=== PATIENT | male | born 1940 | race Caucasian/White ===

== ENCOUNTER 2018-09-21 16:22 | Inpatient (IN) | payer OTHER ==
[~2018-09-21] VITALS: Ht 162.6 cm; Wt 76.5 kg
--- NOTE | 2018-09-21 16:55 | ERD ---
ER Documentation Chief Complaint Chief Complaint SENT PER PMD FOR EVAL OF LOW HEART BEAT, STATES PINCHING FEELING ON CHEST HPI 78-year-old man with a history of coronary artery disease referred to the ER by PMD for bradycardic atrial flutter. Patient has no history of atrial flutter or fibrillation and states for the last few days he has had elevated blood pressure and headaches despite using his medications. Patient does use metoprolol daily. Patient denies fevers or chills, no chest pain or shortness of breath, no headache or blurry vision. ROS All systems reviewed and are negative except as per history of present illness. Medications Home Meds Reported Medications Omeprazole* (Omeprazole*) 20 Mg Capsule.dr, 20 MG PO DAILY, #30 CAP 09/21/18 Levothyroxine Sodium* (Levothyroxine Sodium*) 50 Mcg Tablet, 50 MCG PO BEFORE BREAKFAST, #30 TAB 09/21/18 Amlodipine Besylate* (Amlodipine Besylate*) 10 Mg Tablet, 10 MG PO DAILY, #30 TAB 09/21/18 Benazepril Hcl* (Benazepril Hcl*) 20 Mg Tablet, 20 MG PO DAILY, #30 TAB 09/21/18 Furosemide* (Furosemide*) 40 Mg Tablet, 40 MG PO DAILY, TAB 09/21/18 Dutasteride* (Avodart*) 0.5 Mg Capsule, 0.5 MG PO DAILY, CAP 09/21/18 Metoprolol Succinate* (Toprol XL*) 25 Mg Tab.sr.24h, 25 MG PO DAILY, #30 TAB 09/21/18 Tamsulosin Hcl* (Tamsulosin Hcl*) 0.4 Mg Cap.er.24h, 0.4 MG PO HS, CAP 09/21/18 Glimepiride* (Glimepiride*) 2 Mg Tablet, 2 MG PO WITH BREAKFAST DINNE, TAB 09/21/18 Metformin Hcl* (Metformin Hcl*) 1,000 Mg Tablet, 1000 MG PO WITH BREAKFAST DINNE, #60 TAB 09/21/18 Isosorbide Mononitrate* (Isosorbide Mononitrate*) 30 Mg Tab.er.24h, 30 MG PO DAILY, TAB 09/21/18 Fenofibrate, Micronized (Fenofibrate) 54 Mg Tablet, 54 MG PO DAILY, TAB 09/21/18 Allergies Allergies: Coded Allergies: No Known Allergies (Verified Allergy, Unknown, 09/21/18) PMhx/Soc coronary artery disease status post CABG x3, hypertension, CHF, GERD, diabetes mellitus, hypothyroidism, BPH FmHx Family History: No diabetes Physical Exam Vitals Vital Signs Date Temp Pulse Resp B/P (MAP) Pulse Ox O2 O2 Flow FiO2 Time Delivery Rate 09/21/18 98.3 56 16 127/45 99 Room Air 17:11 (72) 09/21/18 98.3 70 16 138/63 99 16:27 (88) Physical Exam GENERAL: Well-developed, well-nourished, well-hydrated, in no apparent distress, looks nontoxic in appearance HEENT: Moist mucous membranes, pink conjunctiva, no cervical spine tenderness or step-off deformities, no goiter, no jaundice or icterus, extraocular movements intact without pain. No submandibular induration, and no pharyngeal erythema NEURO: Alert and oriented 3, cranial nerves II through XII intact bilaterally, pupils equal round reactive to light, no focal deficits or facial asymmetry, sensation intact distally Strength 5/5 in upper and lower extremities bilaterally CARDIAC: Regular rate and rhythm, no murmurs rubs or gallops LUNGS: Clear bilaterally no wheezing crackles or stridor ABDOMEN: Soft nontender, no guarding, no rigidity, no rebound, no psoas sign no obturator sign. Normoactive bowel sounds SKIN: Warm and dry to touch, no abrasions, contusions, or hematomas, no lacerations, no ecchymosis, no target lesions, and without ulcers EXTREMITIES: No clubbing cyanosis or edema, calves are bilaterally symmetrical, no Homans sign, no popliteal cord sign. Distal pulses equal and bilateral PSYCH: Normal affect without agitation or irritability Result Diagram: 09/21/18172909/21/181729 Results 24 hrs Laboratory Tests Test 09/21/18 17:30 White Blood Count 8.2 10^3/ul Red Blood Count 3.99 10^6/ul Hemoglobin 11.9 g/dl Hematocrit 36.4 % Mean Corpuscular Volume 91.2 fl Mean Corpuscular Hemoglobin 29.8 pg Mean Corpuscular Hemoglobin Concent 32.7 g/dl Red Cell Distribution Width 13.0 % Platelet Count 234 10^3/UL Mean Platelet Volume 11.6 fl Immature Granulocytes % 0.400 % Neutrophils % 49.2 % Lymphocytes % 37.6 % Monocytes % 8.1 % Eosinophils % 4.0 % Basophils % 0.7 % Nucleated Red Blood Cells % 0.0 /100WBC Immature Granulocytes # 0.030 10^3/ul Neutrophils # 4.0 10^3/ul Lymphocytes # 3.1 10^3/ul Monocytes # 0.7 10^3/ul Eosinophils # 0.3 10^3/ul Basophils # 0.1 10^3/ul Nucleated Red Blood Cells # 0.0 10^3/ul Sodium Level 142 mmol/L Potassium Level 4.0 mmol/L Chloride Level 104 mmol/L Carbon Dioxide Level 24 mmol/L Anion Gap 14 Blood Urea Nitrogen 18 mg/dl Creatinine 1.07 mg/dl Est Glomerular Filtrat Rate mL/min mL/min Glucose Level 202 mg/dl Calcium Level 10.0 mg/dl Total Bilirubin 0.3 mg/dl Direct Bilirubin 0.00 mg/dl Indirect Bilirubin 0.3 mg/dl Aspartate Amino Transf (AST/SGOT) 32 IU/L Alanine Aminotransferase (ALT/SGPT) 39 IU/L Alkaline Phosphatase 86 IU/L Troponin I < 0.012 ng/ml Total Protein 7.4 g/dl Albumin 4.4 g/dl Globulin 3.00 g/dl Albumin/Globulin Ratio 1.46 Lipase 140 U/L Current Medications Medications Dose Sig/Luz Start Time Status Last (Trade) Ordered Route PRN Stop Time Admin Dose Reason Admin Aspirin 162 mg ONCE ONCE 09/21/18 DC 09/21/18 (Aspirin) PO 17:00 17:30 09/21/18 17:25 Sodium 500 ml @ Q1H STAT 09/21/18 DC 09/21/18 Chloride 500 mls/hr IV 17:21 17:31 09/21/18 18:20 Aspirin 162 mg ONCE ONCE 09/21/18 DC (Aspirin) PO 17:30 09/21/18 17:31 Procedures/MDM IV line was established 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 Patient was afebrile EKG performed, read by me revealed a sinus bradycardia 60 bpm, normal axis, narrow QRS complex, right ventricular conduction delay QRS duration 102 ms, no concerning ST elevations or depressions noted Chest X-ray 1V Interpreted by me: Soft Tissue: No acute abnormalities Bones: No acute abnormalities Mediastinum/Cardiac Silhouette/Lungs: No acute abnormalities I reviewed office EKG performed prior to arrival and it appears he has atrial flutter 2-1 block at about 46 bpm, normal axis, narrow QRS complex, no concerning ST elevations or depressions I administered aspirin 162 mg p.o. for cardioprotective measures. CBC and electrolytes are normal, liver function tests were normal, troponin was negative Patient will be admitted to telemetry setting for continued medical management and cardiology consultation. Departure Diagnosis: Primary Impression: Atrial flutter Atrial flutter type: unspecified Qualified Codes: I48.92 - Unspecified atrial flutter Additional Impressions: Symptomatic bradycardia Hypertension Hypertension type: essential hypertension Qualified Codes: I10 - Essential (primary) hypertension Condition: HARMONY Finley MD Sep 21, 2018 16:55
[2018-09-21] MEDS ORDERED: ASPIRIN 81 MG TAB PO ONE ×2 (17:00→17:30)
[2018-09-21] MEDS ORDERED: SOD CHLORIDE 0.9% 500 ML IV STA (17:21)
[2018-09-21] MEDS ORDERED: FENO54TA7 PO (17:32)
[2018-09-21] MEDS ORDERED: ISOS30TA67 PO (17:32)
[2018-09-21] MEDS ORDERED: METF100010 PO (17:33)
[2018-09-21] MEDS ORDERED: GLIM2TAB PO (17:33)
[2018-09-21] MEDS ORDERED: TAMS0.4C2 PO (17:33)
[2018-09-21] MEDS ORDERED: FURO40TA4 PO (17:34)
[2018-09-21] MEDS ORDERED: METO-335 PO (17:34)
[2018-09-21] MEDS ORDERED: DUTA0.5C PO (17:34)
[2018-09-21] MEDS ORDERED: BENA20TA4 PO (17:35)
[2018-09-21] MEDS ORDERED: LEVO50TA7 PO (17:35)
[2018-09-21] MEDS ORDERED: AMLO-147 PO (17:35)
[2018-09-21] MEDS ORDERED: OMEP20CA16 PO (17:36)
[2018-09-21] MEDS ORDERED: HYDROCODONE/APAP (5/325) TAB PO PRN (19:00)
[2018-09-21] MEDS ORDERED: ONDANSETRON 4 MG INJ IV PRN (19:00)
[2018-09-21] MEDS ORDERED: NITROGLYCERIN (SL) 0.4 MG TAB SL PRN (19:00)
[2018-09-21] MEDS ORDERED: NACL 0.9% 3 ML SYG IV SCH (19:00)
[2018-09-21] MEDS ORDERED: ACETAMINOPHEN 325 MG TAB PO PRN (19:00)
--- NOTE | 2018-09-21 19:19 | HP ---
Date/Time of Note Date/Time of Note DATE: 09/21/18 TIME: 19:19 Assessment/Plan VTE Prophylaxis Pharmacological prophylaxis: other Lines/Catheters IV Catheter Type (from Nrs): Saline Lock Assessment/Plan Hospital Course Patient is a male with a past medical history significant for coronary artery disease status post CABG x3, hypertension, likely CHF, GERD, diabetes mellitus, hypothyroidism, BPH who presents to [facility] after being sent by his PCP for bradycardia. Patient currently feels well with no acute complaints however the reason he went to his PCP today was because of headache and elevated blood pressure at home. Currently patient's blood pressure is within normal limits and he has absolutely no complaints with no headache. Patient denies chest pain, shortness of breath, headache, abdominal pain, leg pain. Objective Physical exam General: Patient is laying in bed and answers questions appropriately Mentation: Patient is alert and oriented 4, Head: Normocephalic atraumatic Eyes: EOMI, pupils reactive to light Neck: Supple, nontender, midline Respiratory: Clear to auscultation bilaterally Cardiovascular: regular rate, no obvious murmurs Gastrointestinal: non-tender to palpation, bowel sounds heard. Neurological: Moves all extremities spontaneously Skin: No new skin lesions Assessment and plan Bradycardia -Likely iatrogenic as patient is on metoprolol XL, will hold off on metoprolol for now, cardiology has been consulted and echocardiogram ordered -Monitor, astigmatic at this time, however there has been questionable pinched feeling in his chest per ED physician so will trend troponins although patient has no shortness of breath or chest pain at time of this evaluation Questionable a flutter -Per ED may have seen a flutter on monitor, patient is sinus at this time with no history of atrial fibrillation or atrial flutter, echocardiogram pending, cardiology evaluation pending Hypertension -Continue home meds Coronary artery disease status post CABG x3 -Continue home meds Hypothyroidism -Continue home meds BPH -Continue home meds GERD -Continue home meds Diabetes mellitus -Insulin while in house Disposition -Patient feels well, trend troponins, obtain echocardiogram, await cardiology evaluation for bradycardia Result Diagram: 09/21/18 1730 09/21/18 1730 Results 24hrs Laboratory Tests Test 09/21/18 17:30 White Blood Count 8.2 Red Blood Count 3.99 L Hemoglobin 11.9 L Hematocrit 36.4 L Mean Corpuscular Volume 91.2 Mean Corpuscular Hemoglobin 29.8 Mean Corpuscular Hemoglobin Concent 32.7 Red Cell Distribution Width 13.0 Platelet Count 234 Mean Platelet Volume 11.6 H Immature Granulocytes % 0.400 Neutrophils % 49.2 Lymphocytes % 37.6 Monocytes % 8.1 Eosinophils % 4.0 Basophils % 0.7 Nucleated Red Blood Cells % 0.0 Immature Granulocytes # 0.030 Neutrophils # 4.0 Lymphocytes # 3.1 H Monocytes # 0.7 Eosinophils # 0.3 Basophils # 0.1 Nucleated Red Blood Cells # 0.0 Sodium Level 142 Potassium Level 4.0 Chloride Level 104 Carbon Dioxide Level 24 Anion Gap 14 H Blood Urea Nitrogen 18 Creatinine 1.07 Est Glomerular Filtrat Rate mL/min Glucose Level 202 Calcium Level 10.0 Total Bilirubin 0.3 Direct Bilirubin 0.00 Indirect Bilirubin 0.3 Aspartate Amino Transf (AST/SGOT) 32 Alanine Aminotransferase (ALT/SGPT) 39 Alkaline Phosphatase 86 Troponin I < 0.012 Total Protein 7.4 Albumin 4.4 Globulin 3.00 Albumin/Globulin Ratio 1.46 Lipase 140 HPI/ROS Admit Date/Time Admit Date/Time PMH/Family/Social Past Medical History Medications Current Medications Amlodipine Besylate (Norvasc) 10 mg DAILY PO ; Start 09/22/18 at 09:00; Status UNV Benazepril HCl (Lotensin) 20 mg DAILY PO ; Start 09/22/18 at 09:00; Status UNV Dutasteride (Avodart) 0.5 mg DAILY PO ; Start 09/22/18 at 09:00; Status UNV Furosemide (Lasix) 40 mg DAILY PO ; Start 09/22/18 at 09:00; Status UNV Isosorbide Mononitrate (Imdur) 30 mg DAILY PO ; Start 09/22/18 at 09:00; Status UNV Levothyroxine Sodium (Synthroid) 50 mcg BEFORE BREAKFAST PO ; Start 09/22/18 at 07:00; Status UNV Tamsulosin HCl (Flomax) 0.4 mg HS PO ; Start 09/21/18 at 21:00; Status UNV Pantoprazole (Protonix Tab) 40 mg DAILY@06 PO ; Start 09/22/18 at 06:00; Status UNV IV Flush (NS 3 ml) 3 ml PER PROTOCOL IV ; Start 09/21/18 at 19:00; Status UNV Ondansetron HCl (Zofran Inj) 4 mg Q6H PRN IV NAUSEA/VOMITING; Start 09/21/18 at 19:00; Status UNV Nitroglycerin (Nitroglycerin (Sl Tab) 0.4 Mg) 1 tab Q5M PRN SL .CHEST PAIN; Start 09/21/18 at 19:00; Status UNV Acetaminophen (Tylenol Tab) 650 mg Q6H PRN PO .PAIN 1-3 OR TEMP; Start 09/21/18 at 19:00; Status UNV Acetaminophen/ Hydrocodone Bitart ([place] (5/325)) 1 tab Q6H PRN PO .PAIN 4-6; Start 09/21/18 at 19:00; Status UNV Miscellaneous Information (* Miscellaneous Pharmacy Order) Discontinue current oral sulfonylur... ONCE ONCE XX ; Start 09/21/18 at 19:00; Stop 09/21/18 at 19:01; Status UNV Diagnostic Test (Pha) (Accu-Chek) 1 ea XX ; Start 09/22/18 at 02:00; Status UNV Insulin Glargine (Lantus) 11 units DAILY@2000 SC ; Start 09/21/18 at 20:00; Status UNV Insulin Aspart (Novolog Insulin Pen) 4 unit WITH MEALS SC ; Start 09/22/18 at 08:00; Status UNV Miscellaneous Information (* Miscellaneous Pharmacy Order) HYPOGLYCEMIA PROTOCOL w... ONCE ONCE XX ; Start 09/21/18 at 19:00; Stop 09/21/18 at 19:01; Status UNV Insulin Aspart (Novolog Insulin Pen) NOVOLOG *MILD* ALGORITHM WITH MEALS BEDTIME SC ; Start 09/21/18 at 21:00; Status UNV Miscellaneous Information (* Miscellaneous Pharmacy Order) Discontinue all previ... ONCE ONCE XX ; Start 09/21/18 at 19:00; Stop 09/21/18 at 19:01; Status UNV Coded Allergies: No Known Allergies (Verified Allergy, Unknown, 09/21/18) Social History Smoking Status: Never smoker Exam/Review of Systems Vital Signs Vitals Vital Signs Date Temp Pulse Resp B/P (MAP) Pulse Ox O2 O2 Flow FiO2 Time Delivery Rate 09/21/18 51 14 119/46 100 Room Air 19:06 (70) 09/21/18 98.3 17:11 HARMONY KWONG Sep 21, 2018 19:19
[2018-09-21] MEDS ORDERED: GLUCAGON 1 MG INJ IM PRN (20:00)
[2018-09-21] MEDS ORDERED: GLUCOSE GEL 15 GRAM TUBE BUCCAL PRN (20:00)
[2018-09-21] MEDS ORDERED: GLUCOSE GEL 15 GRAM TUBE PO PRN ×2 (20:00)
[2018-09-21] MEDS ORDERED: DEXTROSE 50% 50 ML SYRINGE IV PRN ×2 (20:00)
[2018-09-21 20:09] VITALS: PULSE 48
[2018-09-21 20:24] VITALS: Ht 162.6 cm; Wt 76.5 kg
[2018-09-21] MEDS: TAMSULOSIN (SR) 0.4 MG CAP PO SCH (20:58)
[2018-09-21] MEDS: INSULIN ASPART [NOVOLOG] 3 ML PEN SC SCH (20:59)
[2018-09-21 21:18] VITALS: BP 133/65; PULSE 46; RESP 19
[2018-09-21] MEDS: INSULIN GLARGINE [LANTus] (100 UNITS/ML) SYG SC SCH (22:20)
[2018-09-21 23:32] VITALS: BP 133/60; PULSE 48; RESP 18
[2018-09-22] VITALS (12 sets, daily range): BP systolic 140–153; BP diastolic 63–68; PULSE 39–60; RESP 18–22
[2018-09-22] MEDS: ACCU-CHEK XX SCH (02:00)
[2018-09-22] MEDS: LEVOTHYROXINE 50 MCG TAB PO SCH (06:43)
[2018-09-22] MEDS: PANTOPRAZOLE (EC) 40 MG TAB PO SCH (06:43)
[2018-09-22] MEDS: INSULIN ASPART [NOVOLOG] 3 ML PEN SC SCH ×6 (07:47→20:41)
[2018-09-22] MEDS: AMLODIPINE 10 MG TAB PO SCH (08:39)
[2018-09-22] MEDS: ISOSORBIDE MONONITRATE(SR)30 MG TAB PO SCH (08:39)
[2018-09-22] MEDS: FUROSEMIDE 40 MG TAB PO SCH (08:41)
[2018-09-22] MEDS: ASPIRIN 81 MG TAB PO SCH (08:41)
[2018-09-22] MEDS: DUTASTERIDE 0.5 MG CAP PO SCH (08:42)
[2018-09-22] MEDS ORDERED: BENAZEPRIL 20 MG TAB PO SCH (09:00)
--- NOTE | 2018-09-22 13:25 | CONS ---
Assessment/Plan Assessment/Plan Hospital Course (Demo Recall) Assessment: Sinus bradycardia - possible mild sinus node dysfunction exacerbated by metoprolol, asymptomatic and no clear indication for permanent pacemaker Coronary artery disease, status post CABG (~30 years ago) and PCI (most recently ~3 years ago) - clinically stable Hypertension - reasonable control since hospital admission Dyslipidemia Diabetes mellitus Hypothyroidism - on replacement, normal TSH Benign prostate hyperplasia Recommendations: -metoprolol has been discontinued -increase benazepril to 20mg BID -continue amlodipine 10mg daily -continue Imdur 30mg daily -continue aspirin 81mg daily Stable for discharge from cardiac standpoint, with 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 Consultation Date/Type/Reason Admit Date/Time Type of Consult Cardiology Reason for Consultation bradycardia Date/Time of Note DATE: 09/22/18 TIME: 13:17 Hx of Present Illness The patient is an 78 year-old male who was referred from an urgent care due to bradycardia. He presented to the urgent care for evaluation of headache and high blood pressure for several days. Upon evaluation there, he was noted to have bradycardia. The patient denies any lightheadedness or syncope, He denies any chest pain or shortness of breath. There was a question of atrial flutter, though review of available EKGs and telemetry monitoring do not show any evidence of atrial flutter or atrial fibrillation. He has been in sinus rhythm since hospital admission, with heart rates down to the 40s and occasional blocked premature atrial contractions. 14 point review of systems negative other than per HPI. Past Medical History Coronary artery disease, status post CABG (~30 years ago) and PCI (most recently ~3 years ago) Hypertension Dyslipidemia Diabetes mellitus Hypothyroidism Benign prostate hyperplasia Home Meds Reported Medications Omeprazole* (Omeprazole*) 20 Mg Capsule.dr, 20 MG PO DAILY, #30 CAP 09/21/18 Levothyroxine Sodium* (Levothyroxine Sodium*) 50 Mcg Tablet, 50 MCG PO BEFORE BREAKFAST, #30 TAB 09/21/18 Amlodipine Besylate* (Amlodipine Besylate*) 10 Mg Tablet, 10 MG PO DAILY, #30 TAB 09/21/18 Benazepril Hcl* (Benazepril Hcl*) 20 Mg Tablet, 20 MG PO DAILY, #30 TAB 09/21/18 Furosemide* (Furosemide*) 40 Mg Tablet, 40 MG PO DAILY, TAB 09/21/18 Dutasteride* (Avodart*) 0.5 Mg Capsule, 0.5 MG PO DAILY, CAP 09/21/18 Metoprolol Succinate* (Toprol XL*) 25 Mg Tab.sr.24h, 25 MG PO DAILY, #30 TAB 09/21/18 Tamsulosin Hcl* (Tamsulosin Hcl*) 0.4 Mg Cap.er.24h, 0.4 MG PO HS, CAP 09/21/18 Glimepiride* (Glimepiride*) 2 Mg Tablet, 2 MG PO WITH BREAKFAST DINNE, TAB 09/21/18 Metformin Hcl* (Metformin Hcl*) 1,000 Mg Tablet, 1000 MG PO WITH BREAKFAST DINNE, #60 TAB 09/21/18 Isosorbide Mononitrate* (Isosorbide Mononitrate*) 30 Mg Tab.er.24h, 30 MG PO DAILY, TAB 09/21/18 Fenofibrate, Micronized (Fenofibrate) 54 Mg Tablet, 54 MG PO DAILY, TAB 09/21/18 Medications Current Medications Amlodipine Besylate (Norvasc) 10 mg DAILY PO Last administered on 09/22/18at 08:39; Admin Dose 10 MG; Start 09/22/18 at 09:00 Benazepril HCl (Lotensin) 20 mg DAILY PO Last administered on 09/22/18at 08:41; Admin Dose 20 MG; Start 09/22/18 at 09:00 Dutasteride (Avodart) 0.5 mg DAILY PO Last administered on 09/22/18at 08:42; Admin Dose 0.5 MG; Start 09/22/18 at 09:00 Furosemide (Lasix) 40 mg DAILY PO Last administered on 09/22/18at 08:41; Admin Dose 40 MG; Start 09/22/18 at 09:00 Isosorbide Mononitrate (Imdur) 30 mg DAILY PO Last administered on 09/22/18at 08:39; Admin Dose 30 MG; Start 09/22/18 at 09:00 Levothyroxine Sodium (Synthroid) 50 mcg BEFORE BREAKFAST PO Last administered on 09/22/18at 06:43; Admin Dose 50 MCG; Start 09/22/18 at 07:00 Tamsulosin HCl (Flomax) 0.4 mg HS PO Last administered on 09/21/18at 20:58; Admin Dose 0.4 MG; Start 09/21/18 at 21:00 Pantoprazole (Protonix Tab) 40 mg DAILY@06 PO Last administered on 09/22/18at 06:43; Admin Dose 40 MG; Start 09/22/18 at 06:00 IV Flush (NS 3 ml) 3 ml PER PROTOCOL IV ; Start 09/21/18 at 19:00 Ondansetron HCl (Zofran Inj) 4 mg Q6H PRN IV NAUSEA/VOMITING; Start 09/21/18 at 19:00 Nitroglycerin (Nitroglycerin (Sl Tab) 0.4 Mg) 1 tab Q5M PRN SL .CHEST PAIN; Start 09/21/18 at 19:00 Acetaminophen (Tylenol Tab) 650 mg Q6H PRN PO .PAIN 1-3 OR TEMP; Start 09/21/18 at 19:00 Acetaminophen/ Hydrocodone Bitart ([place] (5/325)) 1 tab Q6H PRN PO .PAIN 4-6; Start 09/21/18 at 19:00 Diagnostic Test (Pha) (Accu-Chek) 1 ea 02 XX ; Start 09/22/18 at 02:00 Insulin Glargine (Lantus) 11 units DAILY@2000 SC Last administered on 09/21/18at 22:20; Admin Dose 11 UNITS; Start 09/21/18 at 20:00 Insulin Aspart (Novolog Insulin Pen) 4 unit WITH MEALS SC Last administered on 09/22/18at 09:19; Admin Dose 4 UNIT; Start 09/22/18 at 08:00 Insulin Aspart (Novolog Insulin Pen) NOVOLOG *MILD* ALGORITHM WITH MEALS BEDTIME SC ; Start 09/21/18 at 21:00 Aspirin (Aspirin) 81 mg DAILY PO Last administered on 09/22/18at 08:41; Admin Dose 81 MG; Start 09/22/18 at 09:00 Miscellaneous Information 1 ea NOTE XX ; Start 09/21/18 at 20:00 Glucose (Glutose) 15 gm Q15M PRN PO DECREASED GLUCOSE; Start 09/21/18 at 20:00 Glucose (Glutose) 22.5 gm Q15M PRN PO DECREASED GLUCOSE; Start 09/21/18 at 20:00 Dextrose (D50w Syringe) 25 ml Q15M PRN IV DECREASED GLUCOSE; Start 09/21/18 at 20:00 Dextrose (D50w Syringe) 50 ml Q15M PRN IV DECREASED GLUCOSE; Start 09/21/18 at 20:00 Glucagon (Glucagen) 1 mg Q15M PRN IM DECREASED GLUCOSE; Start 09/21/18 at 20:00 Glucose (Glutose) 15 gm Q15M PRN BUCCAL DECREASED GLUCOSE; Start 09/21/18 at 20:00 Allergies: Coded Allergies: No Known Allergies (Verified Allergy, Unknown, 09/21/18) Past Surgical History Past Surgical Hx: coronary bypass surgery Family History Significant Family History: no pertinent family hx Social History Smoking Status: Never smoker Exam/Review of Systems Vital Signs Vitals Vital Signs Date Temp Pulse Resp B/P (MAP) Pulse Ox O2 O2 Flow FiO2 Time Delivery Rate 09/22/18 98.0 55 22 148/65 96 Room Air 12:19 (92) Exam Constitutional: alert, well developed Psych: no complaints, nl mood/affect Head: normocephalic, atraumatic Eyes: nl conjunctiva, nl lids ENMT: nl external ears & nose, nl nasal mucosa & septum Neck: supple, non-tender; No jvd Respiratory: clear to auscultation Cardiovascular: regular rate and rhythm Gastrointestinal: soft, non-tender Musculoskeletal: nl extremities to inspection Extremities: No cyanosis, No clubbing, No edema Neurological: nl mental status, nl speech Skin: nl turgor Labs Result Diagram: 09/22/1817 09/22/18 0517 Results 24hrs Laboratory Tests Test 09/21/18 17:30 09/21/18 20:57 09/22/18 00:24 09/22/18 05:17 White Blood Count 8.2 7.6 Red Blood Count 3.99 L 3.76 L Hemoglobin 11.9 L 11.1 L Hematocrit 36.4 L 34.2 L Mean Corpuscular 91.2 91.0 Volume Mean Corpuscular 29.8 29.5 Hemoglobin Mean Corpuscular 32.7 32.5 Hemoglobin Concent Red Cell 13.0 13.4 Distribution Width Platelet Count 234 225 Mean Platelet Volume 11.6 H 11.8 H Immature 0.400 0.400 Granulocytes % Neutrophils % 49.2 41.4 Lymphocytes % 37.6 41.9 Monocytes % 8.1 9.7 Eosinophils % 4.0 5.8 Basophils % 0.7 0.8 Nucleated Red Blood 0.0 0.0 Cells % Immature 0.030 0.030 Granulocytes # Neutrophils # 4.0 3.2 Lymphocytes # 3.1 H 3.2 H Monocytes # 0.7 0.7 Eosinophils # 0.3 0.4 Basophils # 0.1 0.1 Nucleated Red Blood 0.0 0.0 Cells # Sodium Level 142 139 Potassium Level 4.0 3.7 Chloride Level 104 105 Carbon Dioxide Level 24 25 Anion Gap 14 H 9 # Blood Urea Nitrogen 18 18 Creatinine 1.07 0.95 Est Glomerular Filtrat Rate mL/min Glucose Level 202 120 # Calcium Level 10.0 9.2 Total Bilirubin 0.3 0.3 Direct Bilirubin 0.00 0.00 Indirect Bilirubin 0.3 0.3 Aspartate Amino 32 27 Transf (AST/SGOT) Alanine 39 39 Aminotransferase (AL T/SGPT) Alkaline Phosphatase 86 78 Troponin I < 0.012 < 0.012 < 0.012 Total Protein 7.4 6.5 Albumin 4.4 3.7 Globulin 3.00 2.80 Albumin/Globulin 1.46 1.32 Ratio Lipase 140 Bedside Glucose 123 Magnesium Level 2.0 Triglycerides Level 203 H Cholesterol Level 114 LDL Cholesterol, 46 Calculated HDL Cholesterol 27 L Cholesterol/HDL 4.2 Ratio Thyroid Stimulating 2.870 Hormone (TSH) Test 09/22/18 07:40 09/22/18 11:52 Bedside Glucose 121 140 Medications Medications Current Medications Amlodipine Besylate (Norvasc) 10 mg DAILY PO Last administered on 09/22/18 08:39; Admin Dose 10 MG; Start 09/22/18 at 09:00 Benazepril HCl (Lotensin) 20 mg DAILY PO Last administered on 09/22/18 08:41; Admin Dose 20 MG; Start 09/22/18 at 09:00 Dutasteride (Avodart) 0.5 mg DAILY PO Last administered on 09/22/18 08:42; Admin Dose 0.5 MG; Start 09/22/18 at 09:00 Furosemide (Lasix) 40 mg DAILY PO Last administered on 09/22/18 08:41; Admin Dose 40 MG; Start 09/22/18 at 09:00 Isosorbide Mononitrate (Imdur) 30 mg DAILY PO Last administered on 09/22/18 08:39; Admin Dose 30 MG; Start 09/22/18 at 09:00 Levothyroxine Sodium (Synthroid) 50 mcg BEFORE BREAKFAST PO Last administered on 09/22/18at 06:43; Admin Dose 50 MCG; Start 09/22/18 at 07:00 Tamsulosin HCl (Flomax) 0.4 mg HS PO Last administered on 09/21/18at 20:58; Admin Dose 0.4 MG; Start 09/21/18 at 21:00 Pantoprazole (Protonix Tab) 40 mg DAILY@06 PO Last administered on 09/22/18at 06:43; Admin Dose 40 MG; Start 09/22/18 at 06:00 IV Flush (NS 3 ml) 3 ml PER PROTOCOL IV ; Start 09/21/18 at 19:00 Ondansetron HCl (Zofran Inj) 4 mg Q6H PRN IV NAUSEA/VOMITING; Start 09/21/18 at 19:00 Nitroglycerin (Nitroglycerin (Sl Tab) 0.4 Mg) 1 tab Q5M PRN SL .CHEST PAIN; Start 09/21/18 at 19:00 Acetaminophen (Tylenol Tab) 650 mg Q6H PRN PO .PAIN 1-3 OR TEMP; Start 09/21/18 at 19:00 Acetaminophen/ Hydrocodone Bitart ([place] (5/325)) 1 tab Q6H PRN PO .PAIN 4-6; Start 09/21/18 at 19:00 Diagnostic Test (Pha) (Accu-Chek) 1 ea 02 XX ; Start 09/22/18 at 02:00 Insulin Glargine (Lantus) 11 units DAILY@2000 SC Last administered on 09/21/18at 22:20; Admin Dose 11 UNITS; Start 09/21/18 at 20:00 Insulin Aspart (Novolog Insulin Pen) 4 unit WITH MEALS SC Last administered on 09/22/18at 09:19; Admin Dose 4 UNIT; Start 09/22/18 at 08:00 Insulin Aspart (Novolog Insulin Pen) NOVOLOG *MILD* ALGORITHM WITH MEALS BEDT PATRICE SC ; Start 09/21/18 at 21:00 Aspirin (Aspirin) 81 mg DAILY PO Last administered on 09/22/18at 08:41; Admin Dose 81 MG; Start 09/22/18 at 09:00 Miscellaneous Information 1 ea NOTE XX ; Start 09/21/18 at 20:00 Glucose (Glutose) 15 gm Q15M PRN PO DECREASED GLUCOSE; Start 09/21/18 at 20:00 Glucose (Glutose) 22.5 gm Q15M PRN PO DECREASED GLUCOSE; Start 09/21/18 at 20:00 Dextrose (D50w Syringe) 25 ml Q15M PRN IV DECREASED GLUCOSE; Start 09/21/18 at 20:00 Dextrose (D50w Syringe) 50 ml Q15M PRN IV DECREASED GLUCOSE; Start 09/21/18 at 20:00 Glucagon (Glucagen) 1 mg Q15M PRN IM DECREASED GLUCOSE; Start 09/21/18 at 20:00 Glucose (Glutose) 15 gm Q15M PRN BUCCAL DECREASED GLUCOSE; Start 09/21/18 at 20:00 DEAN EDMONDS MD Sep 22, 2018 13:25
--- NOTE | 2018-09-22 13:40 | PN ---
Date/Time of Note Date/Time of Note DATE: 09/22/18 TIME: 13:39 Objective Vitals Vital Signs Date Temp Pulse Resp B/P (MAP) Pulse Ox O2 O2 Flow FiO2 Time Delivery Rate 09/22/18 98.0 55 22 148/65 96 Room Air 12:19 (92) Results Result Diagram: 09/22/1851609/22/18516 Medications Medications Current Medications Amlodipine Besylate (Norvasc) 10 mg DAILY PO Last administered on 09/22/18at 08:39; Admin Dose 10 MG; Start 09/22/18 at 09:00 Dutasteride (Avodart) 0.5 mg DAILY PO Last administered on 09/22/18 08:42; Admin Dose 0.5 MG; Start 09/22/18 at 09:00 Furosemide (Lasix) 40 mg DAILY PO Last administered on 09/22/18 08:41; Admin Dose 40 MG; Start 09/22/18 at 09:00 Isosorbide Mononitrate (Imdur) 30 mg DAILY PO Last administered on 09/22/18at 08:39; Admin Dose 30 MG; Start 09/22/18 at 09:00 Levothyroxine Sodium (Synthroid) 50 mcg BEFORE BREAKFAST PO Last administered on 09/22/18 06:43; Admin Dose 50 MCG; Start 09/22/18 at 07:00 Tamsulosin HCl (Flomax) 0.4 mg HS PO Last administered on 09/21/18at 20:58; Admin Dose 0.4 MG; Start 09/21/18 at 21:00 Pantoprazole (Protonix Tab) 40 mg DAILY@06 PO Last administered on 09/22/18 06:43; Admin Dose 40 MG; Start 09/22/18 at 06:00 IV Flush (NS 3 ml) 3 ml PER PROTOCOL IV ; Start 09/21/18 at 19:00 Ondansetron HCl (Zofran Inj) 4 mg Q6H PRN IV NAUSEA/VOMITING; Start 09/21/18 at 19:00 Nitroglycerin (Nitroglycerin (Sl Tab) 0.4 Mg) 1 tab Q5M PRN SL .CHEST PAIN; Start 09/21/18 at 19:00 Acetaminophen (Tylenol Tab) 650 mg Q6H PRN PO .PAIN 1-3 OR TEMP; Start 09/21/18 at 19:00 Acetaminophen/ Hydrocodone Bitart (Triangle (5/325)) 1 tab Q6H PRN PO .PAIN 4-6; Start 09/21/18 at 19:00 Diagnostic Test (Pha) (Accu-Chek) 1 ea 02 XX ; Start 09/22/18 at 02:00 Insulin Glargine (Lantus) 11 units DAILY@2000 SC Last administered on 09/21/18at 22:20; Admin Dose 11 UNITS; Start 09/21/18 at 20:00 Insulin Aspart (Novolog Insulin Pen) 4 unit WITH MEALS SC Last administered on 09/22/18at 09:19; Admin Dose 4 UNIT; Start 09/22/18 at 08:00 Insulin Aspart (Novolog Insulin Pen) NOVOLOG *MILD* ALGORITHM WITH MEALS BEDTIME SC ; Start 09/21/18 at 21:00 Aspirin (Aspirin) 81 mg DAILY PO Last administered on 09/22/18at 08:41; Admin Dose 81 MG; Start 09/22/18 at 09:00 Miscellaneous Information 1 ea NOTE XX ; Start 09/21/18 at 20:00 Glucose (Glutose) 15 gm Q15M PRN PO DECREASED GLUCOSE; Start 09/21/18 at 20:00 Glucose (Glutose) 22.5 gm Q15M PRN PO DECREASED GLUCOSE; Start 09/21/18 at 20:0 0 Dextrose (D50w Syringe) 25 ml Q15M PRN IV DECREASED GLUCOSE; Start 09/21/18 at 20:00 Dextrose (D50w Syringe) 50 ml Q15M PRN IV DECREASED GLUCOSE; Start 09/21/18 at 20:00 Glucagon (Glucagen) 1 mg Q15M PRN IM DECREASED GLUCOSE; Start 09/21/18 at 20:00 Glucose (Glutose) 15 gm Q15M PRN BUCCAL DECREASED GLUCOSE; Start 09/21/18 at 20:00 Benazepril HCl (Lotensin) 20 mg BID PO ; Start 09/22/18 at 21:00 VTE Prophylaxis Risk score (from Nsg)>0 risk: 7 SCD applied (from Nsg): Yes Lines/Catheters IV Catheter Type: [place] in Place: No Assessment/Plan Hospital Course subjective No acute issues overnight Objective Physical exam General: Patient is laying in bed and answers questions appropriately Mentation: Patient is alert and oriented 4, Head: Normocephalic atraumatic Eyes: EOMI, pupils reactive to light Neck: Supple, nontender, midline Respiratory: Clear to auscultation bilaterally Cardiovascular: Bradycardic rate, no obvious murmurs Gastrointestinal: non-tender to palpation, bowel sounds heard. Neurological: Moves all extremities spontaneously Skin: No new skin lesions Assessment and plan Bradycardia -Likely iatrogenic as patient is on metoprolol XL, will hold off on metoprolol for now, cardiology has been consulted and echocardiogram ordered -Monitor, asymptomatic at this time, Questionable a flutter -Per ED may have seen a flutter on monitor, patient is sinus at this time with no history of atrial fibrillation or atrial flutter, echocardiogram pending, cardiology evaluation pending Hypertension -Continue home meds Coronary artery disease status post CABG x3 -Continue home meds Hypothyroidism -Continue home meds BPH -Continue home meds GERD -Continue home meds Diabetes mellitus -Insulin while in house Disposition -Monitor overnight as patient had fairly low bradycardia, may still be washing out metoprolol XL. HARMONY KWONG Sep 22, 2018 13:40
--- NOTE | 2018-09-22 15:29 | RADRPT ---
Echocardiogram Report Patient Name: Omid VIDALtient ID: [id number] : [birth year] (78y 5m)Study Date: 09/22/2018 12:37:41 PM Gender: MAccession #: [id number] Tech: Michael Moralez [facility] [[email or web address]] Location: [facility] Ref.Physician: HARMONY KWONG Height(Cm): BSA: Weight(Kg): Quality: AdequateAccount #: Procedures: Echocardiographic Report: Transthoracic echocardiogram with complete 2D, M-Mode, and doppler examination. Indications: Bradycardia. Measurements: 2D/M Mode Doppler Measurement Value Normal Range Measurement Value Normal Range LVIDd 2D 3.8 [ 4.2 - 5.8 ] cm AV Peak Benjamin 1.9 [ 100.0 - 170.0 ] cm/se c LVIDs 2D 2.6 [ 2.5 - 4.0 ] cm AV Peak PG 14.0 [ 2.0 - 9.0 ] mmHg LVPWd 2D 0.7 [ 0.6 - 1.0 ] cm LVOT Peak Benjamin 1.3 [ 70.0 - 110.0 ] cm/sec IVSd 2D 0.9 [ 0.6 - 1.0 ] cm LVOT Peak PG 6.0 [ 2.0 - 6.0 ] mmHg AoR Diam 2D 2.3 [ 2.6 - 3.4 ] cm MV E Peak Benjamin 1.1 [ 60.0 - 130.0 ] cm/sec EDV 2D 63.1 [ 62.0 - 150.0 ] ml MV A Peak Benjamin 1.0 [ 100.0 - 120.0 ] cm/se c ESV 2D 24.4 [ 21.0 - 61.0 ] ml MV E/A 1.1 [ 0.8 - 1.5 ] ratio EF 2D 61.3 [ 52.0 - 72.0 ] percent MV PHT 88.0 [ 20.0 - 100.0 ] msec LA Dimen 2D 2.8 [ 3.0 - 4.0 ] cm MV Decel Time 299 [ 104 - 258 ] msec MV Decel [place] 4 Lat E` Benjamin 0.1 [ 10.0 - 15.0 ] cm/sec Lateral E/E` 13.7 [ 1.0 - 2.0 ] ratio Med E` Benjamin 0.0 cm/sec MV E/A 1.1 [ 0.8 - 1.5 ] ratio MVA PHT 2.5 [ 2.0 - 4.0 ] cm2 TR Peak Benjamin 2.9 [ 100.0 - 280.0 ] cm/se c TR Peak PG 34.0 mmHg Findings: Left Ventricle: Normal left ventricular systolic function. Normal left ventricular cavity size. Normal left ventricular wall thickness. Ejection fraction is visually estimated at 55-60 %. Tissue Doppler/Mitral Doppler indices are consistent with pseudonormalization with mildly elevated left atrial pressure (Stage II diastolic dysfunction). Right Ventricle: Normal right ventricular size. Normal right ventricular systolic function. Left Atrium: The left atrium is normal in size. Right Atrium: The right atrium is normal in size. Atrial Septum: Normal atrial septum. Ventricular septum: Normal/intact ventricular septum. Mitral Valve: Normal appearance of the mitral valve. No mitral valve regurgitation is seen. Aortic Valve: Normal appearance of the aortic valve. Trace to mild aortic valve regurgitation. Tricuspid Valve: Normal appearance of the tricuspid valve. There is trace to mild tricuspid regurgitation. Pericardium: Normal pericardium with no significant pericardial effusion. Aorta: Normal aortic root. IVC: The IVC is not well visualized. Conclusions: Normal left ventricular systolic function. Normal left ventricular cavity size. Normal left ventricular wall thickness. Ejection fraction is visually estimated at 55-60 %. Tissue Doppler/Mitral Doppler indices are consistent with pseudonormalization with mildly elevated left atrial pressure (Stage II diastolic dysfunction). Electronically Signed By: Anthony Devine 2018-09-22 15:28:49 PDT
[2018-09-22] MEDS: TAMSULOSIN (SR) 0.4 MG CAP PO SCH (20:40)
[2018-09-22] MEDS: BENAZEPRIL 20 MG TAB PO SCH (20:41)
[2018-09-22] MEDS: INSULIN GLARGINE [LANTus] (100 UNITS/ML) SYG SC SCH (20:57)
[2018-09-23] VITALS (8 sets, daily range): BP systolic 120–164; BP diastolic 58–73; PULSE 42–68; RESP 18–22
[2018-09-23] MEDS: ACCU-CHEK XX SCH (01:17)
[2018-09-23] MEDS: PANTOPRAZOLE (EC) 40 MG TAB PO SCH (05:59)
[2018-09-23] MEDS: LEVOTHYROXINE 50 MCG TAB PO SCH (06:00)
[2018-09-23] MEDS: INSULIN ASPART [NOVOLOG] 3 ML PEN SC SCH ×2 (07:56→12:00)
[2018-09-23] MEDS: ISOSORBIDE MONONITRATE(SR)30 MG TAB PO SCH (09:28)
[2018-09-23] MEDS: DUTASTERIDE 0.5 MG CAP PO SCH (09:28)
[2018-09-23] MEDS: FUROSEMIDE 40 MG TAB PO SCH (09:28)
[2018-09-23] MEDS: AMLODIPINE 10 MG TAB PO SCH (09:28)
[2018-09-23] MEDS: ASPIRIN 81 MG TAB PO SCH (09:28)
[2018-09-23] MEDS: BENAZEPRIL 20 MG TAB PO SCH (09:29)
[2018-09-23] MEDS ORDERED: BENA20TA4 PO (10:52)
[2018-09-23] MEDS ORDERED: ASPI-831 PO (10:52)
--- NOTE | 2018-09-23 10:53 | PDOCDIS ---
Discharge Instructions CONDITION [id number] Patient Condition: [id number] Stable FOLLOW UP/APPOINTMENTS Follow-up Plan Please follow-up with your content administrator as soon as possible. -Stop metoprolol -Your lisinopril dose has been changed, please take new dose -He can continue all other medications. HARMONY KWONG Sep 23, 2018 10:53
--- NOTE | 2018-09-23 10:58 | DS ---
Date/Time of Note Date/Time of Note DATE: 09/23/18 TIME: 10:57 Discharge Summary Admission/Discharge Info Admit Date/Time Sep 21, 2018 at 17:59 Discharge Date/Time Patient Condition: Stable Hospital Course Patient is a male with a past medical history significant for coronary artery disease status post CABG who presented to [facility] after being sent by his clinic for bradycardia. Patient was evaluated in house, was asymptomatic during his entire stay and had evaluation by cardiology. Cardiology stopped patient's beta-nadege and increase patient's VIRGIE inhibitor and stated patient was cleared for discharge to follow-up with his department chair as soon as possible. Patient feels well and will be discharged as long as blood pressure is under control. Discharge diagnosis Bradycardia, stable, now off beta-nadeeg Hypertension Coronary artery disease, stable Hypothyroidism BPH Home Meds Active Scripts Aspirin (Aspirin) 81 Mg Chew, 81 MG PO DAILY for 30 Days, TAB Prov:HARMONY KWONG 09/23/18 Benazepril Hcl* (Benazepril Hcl*) 20 Mg Tablet, 20 MG PO BID for 30 Days, #60 TAB Prov:HARMONY KWONG 09/23/18 Reported Medications Omeprazole* (Omeprazole*) 20 Mg Capsule.dr, 20 MG PO DAILY, #30 CAP 09/21/18 Levothyroxine Sodium* (Levothyroxine Sodium*) 50 Mcg Tablet, 50 MCG PO BEFORE BREAKFAST, #30 TAB 09/21/18 Amlodipine Besylate* (Amlodipine Besylate*) 10 Mg Tablet, 10 MG PO DAILY, #30 TAB 09/21/18 Furosemide* (Furosemide*) 40 Mg Tablet, 40 MG PO DAILY, TAB 09/21/18 Dutasteride* (Avodart*) 0.5 Mg Capsule, 0.5 MG PO DAILY, CAP 09/21/18 Tamsulosin Hcl* (Tamsulosin Hcl*) 0.4 Mg Cap.er.24h, 0.4 MG PO HS, CAP 09/21/18 Glimepiride* (Glimepiride*) 2 Mg Tablet, 2 MG PO WITH BREAKFAST DINNE, TAB 09/21/18 Metformin Hcl* (Metformin Hcl*) 1,000 Mg Tablet, 1000 MG PO WITH BREAKFAST DINNE, #60 TAB 09/21/18 Isosorbide Mononitrate* (Isosorbide Mononitrate*) 30 Mg Tab.er.24h, 30 MG PO DAILY, TAB 09/21/18 Fenofibrate, Micronized (Fenofibrate) 54 Mg Tablet, 54 MG PO DAILY, TAB 09/21/18 Discontinued Reported Medications Benazepril Hcl* (Benazepril Hcl*) 20 Mg Tablet, 20 MG PO DAILY, #30 TAB 09/21/18 Metoprolol Succinate* (Toprol XL*) 25 Mg Tab.sr.24h, 25 MG PO DAILY, #30 TAB 09/21/18 Follow-up Plan Please follow-up with your department chair as soon as possible. -Stop metoprolol -Your lisinopril dose has been changed, please take new dose -He can continue all other medications. Primary Care Provider Not On Staff Doctor Time spent on discharge: > 30 minutes Pending Labs Laboratory Tests Test 09/22/18 11:52 09/22/18 17:08 09/22/18 20:15 09/23/18 05:02 Bedside 140 117 175 Glucose mg/dL (70-220) mg/dL (70-220) mg/dL (70-220) White Blood 7.4 Count 10^3/ul (4.8-1 0.8) Red Blood 4.02 Count 10^6/ul (4.70- 6.10) Hemoglobin 12.0 g/dl (14.0-18. 0) Hematocrit 36.2 % (42.0-52.0) Mean 90.0 Corpuscular fl (82.0-101.0 Volume ) Mean 29.9 Corpuscular pg (29.0-33.0) Hemoglobin Mean 33.1 Corpuscular g/dl (32.0-37. Hemoglobin Conc 0) ent Red Cell 13.1 Distribution % (11.5-14.5) Width Platelet Count 233 10^3/UL (140-4 15) Mean Platelet 11.6 Volume fl (7.4-10.4) Immature 0.400 Granulocytes % % (0.001-0.429 ) Neutrophils % 40.3 % (39.0-77.0) Lymphocytes % 43.6 % (15.0-51.0) Monocytes % 8.4 % (0.0-11.0) Eosinophils % 6.5 % (0.0-7.0) Basophils % 0.8 % (0.0-2.0) Nucleated Red 0.0 Blood Cells % /100WBC (0.0-0 .0) Immature 0.030 Granulocytes # 10^3/ul (0.0-0 .031) Neutrophils # 3.0 10^3/ul (1.6-7 .5) Lymphocytes # 3.2 10^3/ul (0.8-2 .9) Monocytes # 0.6 10^3/ul (0.3-0 .9) Eosinophils # 0.5 10^3/ul (0.0-0 .5) Basophils # 0.1 10^3/ul (0.0-0 .1) Nucleated Red 0.0 Blood Cells # 10^3/ul (0.0-0 .0) Sodium Level 142 mmol/L (135-14 4) Potassium 3.5 Level mmol/L (3.5-5. 1) Chloride Level 108 mmol/L (97-110 ) Carbon Dioxide 26 Level mmol/L (21-31) Anion Gap 8 (5-13) Blood Urea 17 Nitrogen mg/dl (7-20) Creatinine 0.96 mg/dl (0.61-1. 24) Est Glomerular mL/min (>60) Filtrat Rate mL/min Glucose Level 110 mg/dl (70-220) Calcium Level 9.2 mg/dl (8.4-10. 2) Phosphorus 4.1 Level mg/dl (2.5-4.9 ) Magnesium 2.2 Level mg/dl (1.7-2.5 ) Test 09/23/18 07:39 Bedside 122 Glucose mg/dL (70-220) HARMONY KWONG Sep 23, 2018 10:58
[2018-09-23] MEDS ORDERED: hydrALAzine 20 MG INJ IV PRN (11:00)
== END 2018-09-23 13:22 | disposition home or self-care (01) | DRG 310 ==
LOC: E/R 16:22 → 6WM 17:59
PROVIDERS: ADMIT Internal Medicine; ATTEND Internal Medicine
DX: R00.1 Bradycardia, unspecified (principal); I25.10 Atherosclerotic heart disease of native coronary artery without angina pectoris; I10 Essential (primary) hypertension; K21.9 Gastro-esophageal reflux disease without esophagitis; E11.9 Type 2 diabetes mellitus without complications; E03.9 Hypothyroidism, unspecified; N40.0 Benign prostatic hyperplasia without lower urinary tract symptoms; Z79.84 Long term (current) use of oral hypoglycemic drugs; Z95.1 Presence of aortocoronary bypass graft; Z95.5 Presence of coronary angioplasty implant and graft
CPT/HCPCS: 36415; 71045; 80048; 80053; 80061; 82962; 83036; 83690; 83735; 84100; 84443; 84484; 85025; 93005; 93306; J0360; J1815; J7040